=== PATIENT | male | born 1935 | race Caucasian/White ===

== ENCOUNTER 2017-06-10 14:44 | Emergency (ER) | payer MEDICARE ==
[~2017-06-10] VITALS: Ht 185.4 cm; Wt 81.6 kg
--- OUTSIDE RECORDS SUMMARY | 2017-06-10 14:46 | XMS REPORT | Clinical Summary ---
Author Author [facility] Organization [facility] Address Unknown Phone Unavailable Care Team Providers Care Instructor Knitting Name Role Phone Gideon Lindsay MD PCP Allergies Active Allergy Reactions Severity Noted Date Comments Iodine Hives Low 11/10/2016 No Known Drug Allergies 06/08/2015 Current Medications Prescription Sig. Disp. Refills Start End Date Status Date fluticasone (FLONASE) 50 USE 2 SPRAYS IN EACH 16 mL 1 11/05/19 Active mcg/actuation nasal spray NOSTRIL EVERY DAY 17 omeprazole (PriLOSEC) 20 TAKE 1 CAPSULE DAILY 90 capsule 3 04/29/19 Active MG capsule 18 lisinopril-hydrochlorothi TAKE 1 TABLET DAILY 90 tablet 3 05/06/19 Active azide 18 (PRINZIDE,ZESTORETIC) 20-12.5 mg per tablet lisinopril-hydrochlorothi TAKE 1 TABLET DAILY 90 tablet 3 03/26/20 05/05/19 Discontin azide 16 18 ued (PRINZIDE,ZESTORETIC) 20-12.5 mg per tablet omeprazole (PriLOSEC) 20 TAKE 1 CAPSULE DAILY 90 capsule 3 03/26/20 04/29/19 Discontin MG capsule 16 18 ued Active Problems Problem Noted Date Chest pain 06/08/2015 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 Depression 06/08/2015 Disease of prostate 06/08/2015 Shortness of breath 06/08/2015 Gluten intolerance 06/08/2015 Overview: Gluten sensitivity- Idiopathic peripheral neuropathy 06/08/2015 Malaise and fatigue 06/08/2015 Otalgia 06/08/2015 Poor short-term memory 06/08/2015 Inflammation of sacroiliac joint 11/23/2011 Constipation 11/24/2010 Atopic rhinitis 05/22/2010 Arthropathia 05/22/2010 Essential hypertension 05/22/2010 Gastroesophageal reflux disease 05/22/2010 Malignant neoplasm of prostate 05/22/2010 Encounters Date Type Specialty Care Team Description 05/05/2017 Refill Internal Medicine Dre Lindsay MD 04/29/2017 Refill Internal Medicine Dre Lindsay MD 11/10/2016 [facility]iology Vic Larson MD Diverticulitis large Encounter intestine w/o perforation or abscess w/bleeding; Chronic constipation 11/09/2016 [facility] Radiology Vic Larson MD Diverticulitis large Encounter intestine w/o perforation or abscess w/bleeding; Chronic constipation 11/09/2016 [facility] Access Vic Larson MD Diverticulitis large Orders intestine w/o perforation or abscess w/bleeding; Chronic constipation 11/05/2016 [facility] Vic Larson MD Chronic constipation Orders (Primary Dx); Diverticulitis large intestine w/o perforation or abscess w/bleeding 11/03/2016 Refill Internal Medicine Dre Lindsay MD after 06/09/2016 Immunizations Name Dates Previously Given Next Due FLUZONE HIGH-DOSE PF 02/26/2014 Influenza Trivalent 12/27/2007 Pneumococcal Conjugate 08/21/2014 13-Valent Td, Not Adsorbed 05/26/2010 Social History Tobacco Use Types Packs/Day Years Used Date Never Assessed Sex Assigned at Date Recorded Not on file Last Filed Vital Signs Not on file Plan of Treatment Health Maintenance Due Date Last Done Comments ZOSTER VACCINE 1994 PNEUMOCOCCAL 1999 POLYSACCHARIDE VACCINE AGE 65 AND OVER INFLUENZA VACCINE 11/17/2016 02/26/2014, 12/27/2007 PNEUMOCOCCAL-13 Completed 08/21/2014 Results * [place] Colon Gastrografin Water Soluble Enema (11/10/2016 12:12 PM) Specimen Performing Laboratory [facility] [address] [place] [address] Narrative EXAMINATION:FL COLON GASTROGRAFIN WATER SOLUBLE ENEMA CLINICAL HISTORY:K57.33 Diverticulitis of large intestine without perforation or abscess with bleeding, K59.09 Other constipation, SP COLECYSTECTOMY COMPARISON:None. TECHNIQUE:Barium and air were administered via a rectal tube by gravity under fluoroscopic guidance. The colon was opacified in a retrograde fashion to the cecum. Spot radiographs and overhead films were obtained. FLUOROSCOPIC TIME:2 minutes 45 seconds 9 spot films were obtained FINDINGS: The patient was premedicated with 25 mg of Benadryl and 50 mg of Solu- Cortef IV. The history of iodine allergy is noted. Gastrografin was utilized as per request given history of constipation. The colon was unprepped also as per request. This precludes evaluation of the colon intraluminally. Gastrografin was introduced in the colon retrograde fashion and was filled to the level of the cecum. There is no stricture identified. No annular constricting lesions are identified. The anastomosis does not appear abnormally narrowed IMPRESSION: 1. Stool-filled unprepped colon. No stricture is identified. 2. No annular constricting lesions are identified. 3. Intraluminal pathology is not excluded The patient tolerated the procedure well. . [id number] Procedure Note Hm Interface, Radiology Results Incoming - 11/10/2016 12:52 PM CDT EXAMINATION: FL COLON GASTROGRAFIN WATER SOLUBLE ENEMA CLINICAL HISTORY: K57.33 Diverticulitis of large intestine without perforation or abscess with bleeding, K59.09 Other constipation, SP COLECYSTECTOMY COMPARISON: None. TECHNIQUE: Barium and air were administered via a rectal tube by gravity under fluoroscopic guidance. The colon was opacified in a retrograde fashion to the cecum. Spot radiographs and overhead films were obtained. FLUOROSCOPIC TIME: 2 minutes 45 seconds 9 spot films were obtained FINDINGS: The patient was premedicated with 25 mg of Benadryl and 50 mg of Solu- Cortef IV. The history of iodine allergy is noted. Gastrografin was utilized as per request given history of constipation. The colon was unprepped also as per request. This precludes evaluation of the colon intraluminally. Gastrografin was introduced in the colon retrograde fashion and was filled to the level of the cecum. There is no stricture identified. No annular constricting lesions are identified. The anastomosis does not appear abnormally narrowed IMPRESSION: 1. Stool-filled unprepped colon. No stricture is identified. 2. No annular constricting lesions are identified. 3. Intraluminal pathology is not excluded The patient tolerated the procedure well. . [id number] after 06/09/2016 Insurance Payer Benefit Subscriber ID Type Phone Address Plan / Group AETNA MEDICARE AETNA xxxxxxxx HMO MEDICARE HMO/PPO [facility]
[2017-06-10] MEDS ORDERED: OMEPRAZOLE20 M1 (15:14)
[2017-06-10] MEDS ORDERED: LISINOPRIL10 MG PO (15:14)
[2017-06-10 23:50] VITALS: BP 148/88
== END 2017-06-10 19:11 | disposition home or self-care (01) ==
LOC: ER 14:44
DX: Z20.89 Contact with and (suspected) exposure to other communicable diseases (principal)
CPT/HCPCS: 99282

== ENCOUNTER 2017-12-13 14:26 | Emergency (ER) | payer MEDICARE ==
[~2017-12-13] VITALS: Ht 185.4 cm; Wt 83.9 kg
[~2017-12-13 14:26] MED LIST: LISINOPRIL10 MG PO; OMEPRAZOLE20 M1
== END 2017-12-13 14:59 | disposition left against medical advice (07) ==
LOC: FSED 14:26
DX: H11.31 Conjunctival hemorrhage, right eye (principal)

== ENCOUNTER 2019-01-13 03:04 | Emergency (ER) | payer MEDICARE ==
[~2019-01-13] VITALS: Ht 185.4 cm; Wt 83.9 kg
--- OUTSIDE RECORDS SUMMARY | 2019-01-13 03:07 | XMS REPORT | Clinical Summary ---
Author Author [employer] Organization [place] [employer] Address Unknown Phone Unavailable Care Team Providers Care Speech Therapist Technician Name Role Phone Dre Lindsay MD PCP Allergies Comments Active Allergy Reactions Severity Noted Date Iodine Hives Low 11/10/2016 No Known Drug Allergies 06/08/2015 Medications End Date Status Medication Sig Dispensed Refills Start Date Active methylcellulose (CITRUCEL Take by 0 ORAL) mouth. Active magnesium oxide 400 mg Take by 0 capsule mouth. Active cyanocobalamin, vitamin Place 5,000 0 B-12, 5,000 mcg tablet, mcg under the sublingual tongue daily. Active lisinopril-hydrochlorothi TAKE 1 TABLET 90 tablet 3 azide DAILY 9 (PRINZIDE,ZESTORETIC) 20-12.5 mg per tablet Active omeprazole (PriLOSEC) 20 TAKE 1 90 capsule 3 MG capsule CAPSULE DAILY 9 Active glucosamine Take by mouth 0 HCl/chondroitin kearns 2 (two) times (GLUCOSAMINE-CHONDROITIN a day. ORAL) 01/17/2018 Discontinued fluticasone (FLONASE) 50 USE 2 SPRAYS 16 mL 1 mcg/actuation nasal spray IN EACH 7 NOSTRIL EVERY DAY 05/26/2018 Discontinued (Reorder) omeprazole (PriLOSEC) 20 TAKE 1 90 capsule 3 MG capsule CAPSULE DAILY 8 05/26/2018 Discontinued (Reorder) lisinopril-hydrochlorothi TAKE 1 TABLET 90 tablet 3 azide DAILY 8 (PRINZIDE,ZESTORETIC) 20-12.5 mg per tablet 02/25/2018 Discontinued (Med List Cleanup) oxymetazoline (AFRIN) 2 sprays into 0 0.05 % nasal spray each nostril 2 (two) times a day. 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 Disease of prostate 06/08/2015 Gluten intolerance 06/08/2015 Overview: Gluten sensitivity- Idiopathic peripheral neuropathy 06/08/2015 Malaise and fatigue 06/08/2015 Poor short-term memory 06/08/2015 Inflammation of sacroiliac joint 11/23/2011 Constipation 11/24/2010 Allergic rhinitis 05/22/2010 Arthropathia 05/22/2010 Essential hypertension 05/22/2010 Gastroesophageal reflux disease 05/22/2010 Malignant neoplasm of prostate 05/22/2010 Resolved Problems Problem Noted Date Resolved Date Chest pain 06/08/2015 01/17/2018 Depression 06/08/2015 01/17/2018 Shortness of breath 06/08/2015 01/17/2018 Otalgia 06/08/2015 01/17/2018 Encounters Care Team Description Date Type Specialty Dre Lindsay MD Other constipation (Primary Dx); Essential hypertension; Idiopathic peripheral neuropathy; Rectal cancer (HCC); At risk for falling 10/31/2018 Office Visit Internal Medicine Dre Lindsay MD 05/26/2018 Refill Internal Medicine Pepito Cazares MD 02/25/2018 Anesthesia General Surgery Event Vic Larson MD TRANS-ANAL EXCISION 02/25/2018 Surgery General Surgery Vic Larson MD 02/25/2018 Hospital General Surgery Encounter Eriberto Jarrell MD Colmenter, Heather, MD 02/18/2018 Anesthesia Gastroenterology Event Vic Larson MD COLONOSCOPY 02/18/2018 Surgery Gastroenterology Vic Larson MD 02/18/2018 Hospital Gastroenterology Encounter Dre Lindsay MD Encounter for general adult medical examination with abnormal findings (Primary Dx); Slow transit constipation; Idiopathic peripheral neuropathy; Allergic rhinitis due to pollen, unspecified seasonality; Essential hypertension; Screening cholesterol level; Influenza vaccine needed 01/17/2018 Office Visit Internal Medicine after 01/12/2018 Immunizations Name Administration Dates Next Due FLUZONE HIGH-DOSE PF 01/17/2018, 02/26/2014 Influenza Trivalent 12/27/2007 Pneumococcal Conjugate 08/21/2014 13-Valent Td, Not Adsorbed 05/26/2010 Family History Medical History Relation Name Comments Arrhythmia Father Relation Name Status Comments Father Maternal Grandfather Maternal Grandmother Mother Paternal Grandfather Paternal Grandmother Sister Alive Social History Date Tobacco Use Types Packs/Day Years Used Never Smoker Smokeless Tobacco: Never Used Drinks/Week oz/Week Comments Alcohol Use No Sex Assigned at Date Recorded Not on file Industry Job Start Date Occupation Not on file Not on file Not on file Travel End Travel History Travel Start No recent travel history available. Last Filed Vital Signs Reading Time Taken Comments Vital Sign 106/65 10/31/2018 3:01 PM CDT Blood Pressure 62 10/31/2018 3:01 PM CDT Pulse 36.4 C (97.6 F) 02/25/2018 11:20 AM ASSOCIATE PROFESSOR OF PSYCHOLOGY Temperature 16 02/25/2018 12:46 PM ASSOCIATE PROFESSOR OF PSYCHOLOGY Respiratory Rate 97% 02/25/2018 12:46 PM ASSOCIATE PROFESSOR OF PSYCHOLOGY Oxygen Saturation - - Inhaled Oxygen Concentration 77.1 kg (170 lb) 10/31/2018 3:01 PM CDT Weight 182.9 cm (6') 10/31/2018 3:01 PM CDT Height 23.06 10/31/2018 3:01 PM CDT Body Mass Index Plan of Treatment Health Maintenance Due Date Last Done Comments SHINGLES VACCINES (#1) 1984 65+ PNEUMOCOCCAL VACCINE 08/22/2015 08/21/2014 (2 of 2 - PPSV23) INFLUENZA VACCINE 11/17/2018 01/17/2018, 02/26/2014, 12/27/2007 Procedures Comments Procedure Name Priority Date/Time Associated Diagnosis COMPREHENSIVE METABOLIC Routine 10/31/2018 Other constipation PANEL 3:54 PM CDT Essential hypertension CBC WITH PLATELET AND Routine 10/31/2018 Other constipation DIFFERENTIAL 3:54 PM CDT Essential hypertension SURGICAL PATHOLOGY Routine 02/25/2018 REQUEST 10:53 AM ASSOCIATE PROFESSOR OF PSYCHOLOGY SURGICAL PATHOLOGY Routine 02/25/2018 REQUEST 10:53 AM ASSOCIATE PROFESSOR OF PSYCHOLOGY EXCISION, TUMOR OR MASS, 02/25/2018 RECTAL CANCER RECTAL 10:22 AM ASSOCIATE PROFESSOR OF PSYCHOLOGY C20 URINALYSIS SCREEN AND STAT 02/25/2018 MICROSCOPY, WITH REFLEX 7:55 AM ASSOCIATE PROFESSOR OF PSYCHOLOGY TO CULTURE URINE CULTURE STAT 02/25/2018 7:55 AM ASSOCIATE PROFESSOR OF PSYCHOLOGY XR CHEST 1 VW PORTABLE STAT 02/25/2018 7:47 AM ASSOCIATE PROFESSOR OF PSYCHOLOGY ESTIMATED GFR STAT 02/25/2018 7:31 AM ASSOCIATE PROFESSOR OF PSYCHOLOGY THYROID STIMULATING STAT 02/25/2018 HORMONE 7:31 AM ASSOCIATE PROFESSOR OF PSYCHOLOGY PROSTATE SPECIFIC ANTIGEN STAT 02/25/2018 7:31 AM ASSOCIATE PROFESSOR OF PSYCHOLOGY CARCINOEMBRYONIC ANTIGEN STAT 02/25/2018 (CEA) 7:31 AM ASSOCIATE PROFESSOR OF PSYCHOLOGY COMPREHENSIVE METABOLIC STAT 02/25/2018 PANEL 7:31 AM ASSOCIATE PROFESSOR OF PSYCHOLOGY HC COMPLETE BLD COUNT Routine 02/25/2018 W/AUTO DIFF 7:31 AM ASSOCIATE PROFESSOR OF PSYCHOLOGY SURGICAL PATHOLOGY Routine 02/18/2018 REQUEST 1:49 PM CDT SURGICAL PATHOLOGY Routine 02/18/2018 REQUEST 1:49 PM CDT COLONOSCOPY 02/18/2018 CONSTIPATION 12:20 PM CDT ECG 12-LEAD Routine 02/18/2018 12:00 PM CDT LDL CHOLESTEROL, DIRECT Routine 01/17/2018 Screening cholesterol 2:26 PM CDT level HDL CHOLESTEROL Routine 01/17/2018 Screening cholesterol 2:26 PM CDT level CHOLESTEROL Routine 01/17/2018 Screening cholesterol 2:26 PM CDT level URINALYSIS, COMPLETE, Routine 01/17/2018 Slow transit constipation WITH REFLEX TO CULTURE 2:26 PM CDT Essential hypertension COMPREHENSIVE METABOLIC Routine 01/17/2018 Slow transit constipation PANEL 2:26 PM CDT CBC WITH PLATELET AND Routine 01/17/2018 Slow transit constipation DIFFERENTIAL 2:26 PM CDT after 01/12/2018 Results * CBC with platelet and differential (10/31/2018 3:54 PM CDT) Only the most recent of 3 results within the time period is included. [facility] WBC 7.3 3.8 - 10.8 [facility] Thousand/uL [facility] RBC 4.08 (L) 4.20 - 5.80 [facility] Million/uL [facility] [place] HGB 13.3 13.2 - 17.1 g/dL [facility] [place] HCT 38.5 38.5 - 50.0 % [facility] [place] MCV 94.4 80.0 - 100.0 fL [facility] [place] MCH 32.6 27.0 - 33.0 pg [facility] [place] MCHC 34.5 32.0 - 36.0 g/dL [facility] [place] RDW 12.4 11.0 - 15.0 % [facility] [place] Platelet count 192 140 - 400 [facility] Thousand/uL [facility] MPV 9.9 7.5 - 12.5 fL [facility] [place] Neutrophils, 5,139 1,500 - 7,800 [facility] absolute cells/uL [facility] [place] Lymphocytes, 1,460 850 - 3,900 cells/uL [facility] absolute [facility] [place] Monocytes, 577 200 - 950 cells/uL [facility] absolute [facility] [place] Eosinophils, 80 15 - 500 cells/uL [facility] absolute [facility] [place] Basophils, 44 0 - 200 cells/uL [facility] absolute [facility] [place] Neutrophils 70.4 % [facility] [place] Lymphocytes 20.0 % [facility] [place] Monocytes 7.9 % [facility] [place] Eosinophils 1.1 % [facility] [place] Basophils + RC 0.6 % [facility] [place] Specimen Blood Narrative Performed At FASTING:NO [facility] FASTING: NO Resulting Agency Comment Performing Organization Information: Site ID: [id number] Address: [address] [place] [phone] Director: Benita Hill Performing Organization Address City/State/Zipcode Phone Number [facility] [place] [phone] * Comprehensive metabolic panel (10/31/2018 3:54 PM CDT) Only the most recent of 3 results within the time period is included. [facility] Glucose 97 65 - 139 mg/dL [facility] Comment: [facility] Non-fasting [place] reference interval BUN, whole 12 7 - 25 mg/dL [facility] blood [facility] [place] Creatinine 0.81 0.70 - 1.11 mg/dL [facility] Comment: [facility] For patients >49 years of age, [place] the reference limit for Creatinine is approximately 13% higher for people identified as -Belgian. EGFR Non-Afr. 82 > OR=60 [facility] [place] mL/min/1.73m2 [facility] [place] EGFR 95 > OR=60 [facility] [place] mL/min/1.73m2 [facility] [place] BUN/creatinine NOT APPLICABLE 6 - 22 (calc) [facility] ratio [facility] [place] Sodium 131 (L) 135 - 146 mmol/L [facility] [place] Potassium 4.4 3.5 - 5.3 mmol/L [facility] [place] Chloride 96 (L) 98 - 110 mmol/L [facility] [place] CO2 30 20 - 32 mmol/L [facility] [place] Calcium 9.0 8.6 - 10.3 mg/dL [facility] [place] Protein 6.7 6.1 - 8.1 g/dL [facility] [place] Albumin, S 4.1 3.6 - 5.1 g/dL [facility] [place] Globulin, total 2.6 1.9 - 3.7 g/dL [facility] (calc) [facility] Albumin/globuli 1.6 1.0 - 2.5 (calc) [facility] n ratio [facility] Total bilirubin 0.5 0.2 - 1.2 mg/dL [facility] [place] Alkaline 63 40 - 115 U/L [facility] phosphatase [facility] AST 14 10 - 35 U/L [facility] [place] ALT 10 9 - 46 U/L [facility] [place] Specimen Blood Narrative Performed At FASTING:NO [facility] FASTING: NO Resulting Agency Comment Performing Organization Information: Site ID: [id number] Address: [address] [place] [phone] Director: Benita Hill Performing Organization Address City/[facility]/Zipcode Phone Number [facility] [place] [phone] * Surgical pathology request (02/25/2018 10:53 AM ASSOCIATE PROFESSOR OF PSYCHOLOGY) Only the most recent of 4 results within the time period is included. [facility] DEPARTMENT OF PATHOLOGY AND GENOMIC MEDICINE Surgical See link below for PDF Lab [facility] pathology Report DEPARTMENT OF report PATHOLOGY AND GENOMIC MEDICINE Result status This is Supplemental Report [facility] for [id number] DEPARTMENT OF PATHOLOGY AND GENOMIC MEDICINE Specimen Performing Organization Address City/State/Zipcode Phone Number [facility] DEPARTMENT [place] [address] [address] [place] [phone] PATHOLOGY AND GENOMIC MEDICINE * Urinalysis screen and microscopy, with reflex to culture (02/25/2018 7:55 AM ASSOCIATE PROFESSOR OF PSYCHOLOGY) Specimen site Clean catch [facility] DEPARTMENT OF PATHOLOGY AND GENOMIC MEDICINE Color, UA Yellow [facility] DEPARTMENT OF PATHOLOGY AND GENOMIC MEDICINE Appearance, UA Clear [facility] DEPARTMENT OF PATHOLOGY AND GENOMIC MEDICINE Specific 1.012 1.001 - 1.035 [facility] gravity, DEPARTMENT OF PATHOLOGY AND GENOMIC MEDICINE pH, UA 6.0 5.0 - 8.5 [facility] DEPARTMENT OF PATHOLOGY AND GENOMIC MEDICINE Protein, UA Negative Negative [facility] DEPARTMENT OF PATHOLOGY AND GENOMIC MEDICINE Glucose, UA Negative Negative [facility] DEPARTMENT OF PATHOLOGY AND GENOMIC MEDICINE Ketones, UA Negative Negative [facility] DEPARTMENT OF PATHOLOGY AND GENOMIC MEDICINE Bilirubin, UA Negative Negative [facility] DEPARTMENT OF PATHOLOGY AND GENOMIC MEDICINE Blood, UA Negative Negative [facility] DEPARTMENT OF PATHOLOGY AND GENOMIC MEDICINE Nitrite, UA Negative Negative [facility] DEPARTMENT OF PATHOLOGY AND GENOMIC MEDICINE Urobilinogen, Negative <2.0 [facility] DEPARTMENT OF PATHOLOGY AND GENOMIC MEDICINE Leukocyte Negative Negative [facility] esterase, DEPARTMENT OF PATHOLOGY AND GENOMIC MEDICINE WBC, UA 0-5 0 - 1 /HPF [facility] DEPARTMENT OF PATHOLOGY AND GENOMIC MEDICINE RBC, UA 0-5 0 - 5 /HPF [facility] DEPARTMENT OF PATHOLOGY AND GENOMIC MEDICINE Bacteria, UA None seen None seen [facility] DEPARTMENT OF PATHOLOGY AND GENOMIC MEDICINE Yeast, UA None seen [facility] DEPARTMENT OF PATHOLOGY AND GENOMIC MEDICINE Yeast with None seen [facility] pseudohyphae, DEPARTMENT OF PATHOLOGY AND GENOMIC MEDICINE Hyaline casts, 3-5 /LPF [facility] DEPARTMENT OF PATHOLOGY AND GENOMIC MEDICINE Specimen Urine Performing Organization Address [facility] Phone Number [address] [place] [address] PATHOLOGY AND GENOMIC MEDICINE * Urine culture (02/25/2018 7:55 AM ASSOCIATE PROFESSOR OF PSYCHOLOGY) Urine culture SEE COMMENTComment: [facility] Bacteriuria screen negative. DEPARTMENT OF PATHOLOGY AND GENOMIC MEDICINE Specimen Urine Performing Organization Address [facility] Phone Number [address] [place] [phone] PATHOLOGY AND GENOMIC MEDICINE * XR Chest 1 Vw Portable (02/25/2018 7:47 AM ASSOCIATE PROFESSOR OF PSYCHOLOGY) Specimen Narrative Performed At EXAMINATION:XR CHEST 1 VW PORTABLE [facility] CLINICAL HISTORY:pre-opOPS rm [id number] COMPARISON: FINDINGS: The heart size is within normal limits. The aorta is dilated and tortuous. The mediastinum is otherwise unremarkable. The lungs are free of acute abnormalities. A few scattered calcified granulomata are noted. IMPRESSION: No acute finding is visualized [id number] Procedure Note Hm Interface, Radiology Results Incoming - 02/25/2018 7:56 AM ASSOCIATE PROFESSOR OF PSYCHOLOGY EXAMINATION: XR CHEST 1 VW PORTABLE CLINICAL HISTORY: pre-op OPS rm [id number] COMPARISON: FINDINGS: The heart size is within normal limits. The aorta is dilated and tortuous. The mediastinum is otherwise unremarkable. The lungs are free of acute abnormalities. A few scattered calcified granulomata are noted. IMPRESSION: No acute finding is visualized [id number] Performing Organization Address City/[facility]/Zipcode Phone Number [facility] [address] [place] [address] * Estimated GFR (02/25/2018 7:31 AM ASSOCIATE PROFESSOR OF PSYCHOLOGY) Estimated GFR 82 mL/min/1.73 m2 [facility] Comment: DEPARTMENT OF [employer]ory[employer]itsInte PATHOLOGY AND rpretation [place] [id number] MEDICINE >=90 Normal or high G2 60-89Mildly decreased [id number] Mildly to moderately decreased [id number] Moderately to severely decreased G4 15-29Severely decreased G5 <15Kidney failure The eGFR was calculated using the Chronic Kidney Disease Epidemiology Collaboration (CKD-EPI) equation. Interpretation is based on recommendations of the National Kidney Foundation-Kidney Disease Outcomes Quality Initiative (NKF-KDOQI) published in 2014. Specimen Plasma specimen Performing Organization Address [facility] Vegascomd Phone Number [address] [place] [phone] PATHOLOGY AND GENOMIC MEDICINE * Thyroid stimulating hormone (02/25/2018 7:31 AM ASSOCIATE PROFESSOR OF PSYCHOLOGY) TSH 2.02 0.27 - 4.20 uIU/mL [facility] DEPARTMENT OF PATHOLOGY AND GENOMIC MEDICINE Specimen Plasma specimen Performing Organization Address [facility] Phone Number [address] [place] [phone] PATHOLOGY AND GENOMIC MEDICINE * Prostate specific antigen (02/25/2018 7:31 AM ASSOCIATE PROFESSOR OF PSYCHOLOGY) PSA 0.2 0.0 - 4.0 ng/mL [facility] DEPARTMENT Comment: OF PATHOLOGY The KENYON 8000 PSA immunoassay AND [employer] was used. MEDICINE Results obtained with different assay methods or kits should not be used interchangeably and may be different. Specimen Plasma specimen Performing Organization Address [facility] Vegas[facility] Phone Number [facility] DEPARTMENT OF [address] [place] [phone] PATHOLOGY AND GENOMIC MEDICINE * Carcinoembryonic antigen (CEA) (02/25/2018 7:31 AM ASSOCIATE PROFESSOR OF PSYCHOLOGY) [facility] CEA 2.5 0.0 - 3.8 ng/mL [facility] DEPARTMENT Comment: OF PATHOLOGY Reference range for heavy AND GENOMIC smokers:0.0 - 5.5 ng/mL MEDICINE The TETO [place] 8000 CEA immunoassay was used. Results obtained with different assay methods or kits should not be used interchangeably and may be different. Specimen Serum Performing Organization Address [facility] Vegas[facility]d Phone Number [facility] DEPARTMENT OF [address] [place] [phone] PATHOLOGY AND [facility] MEDICINE * ECG 12 lead (02/18/2018 12:00 PM CDT) [facility] Ventricular 72 [facility] MUSE rate Atrial rate 72 [facility] M[facility] IN interval 176 [facility] QRSD interval 106 [facility] QT interval 394 [facility] QTC interval 431 [facility] P axis 1 51 [facility] M[facility] QRS axis 1 -75 [facility] MUSE T wave axis 41 [facility] EKG impression Sinus rhythm with sinus [facility] MUSE arrhythmia with occasional premature ventricular complexes-Left axis deviation-Low voltage QRS-Incomplete right bundle branch block-Possible Lateral infarct (cited on or before 06-NOV-2015)-Abnormal ECG-In automated comparison with ECG of 23-NOV-2015 17:12,-Significant changes have occurred- Specimen Performing Organization Address City/[facility] Vegas[facility] Phone Number [facility] MUSE [address] [place] [phone] * URINALYSIS, COMPLETE, WITH REFLEX TO CULTURE (01/17/2018 2:26 PM CDT) Pathologist [facility] Color, UA YELLOW YELLOW [facility] [place] Appearance CLEAR CLEAR [facility] [place] Specific 1.015 1.001 - 1.035 [facility] gravity, urine [facility] [place] pH, urine 5.5 5.0 - 8.0 [facility] [place] Glucose, urine NEGATIVE NEGATIVE [facility] [place] Bilirubin, UA NEGATIVE NEGATIVE [facility] [place] Ketones, UA NEGATIVE NEGATIVE [facility] [place] Occult blood, NEGATIVE NEGATIVE [facility] urine [facility] [place] Protein, UA NEGATIVE NEGATIVE [facility] [place] Nitrite, UA NEGATIVE NEGATIVE [facility] [place] Leukocyte NEGATIVE NEGATIVE [facility] esterase, UA [facility] [place] WBC, UA NONE SEEN < OR=5 /HPF [facility] [place] RBC, UA NONE SEEN < OR=2 /HPF [facility] [place] Squamous NONE SEEN < OR=5 /HPF [facility] epithelial DIAGNOSTICS cells, UA [place] Bacteria, UA NONE SEEN NONE SEEN /HPF [facility] [place] Hyaline casts, NONE SEEN NONE SEEN /LPF [facility] UA [facility] [place] Reflex NO CULTURE INDICATED [employer] [place] Specimen Narrative Performed At FASTING:NO [facility] FASTING: NO Resulting Agency Comment Performing Organization Information: Site ID: [facility] Name: [facility] Lab Address: [address] [place] [phone] Director: Benita Hill Performing Organization Address [facility] Phone Number [employer] [address] [address] * LDL cholesterol, direct (01/17/2018 2:26 PM CDT) Pathologist [facility] LDL Direct 76 <100 mg/dL [facility] Comment: DIAGNOSTICS Greatly elevated Triglycerides [place] values (>1200 mg/dL) interfere with the dLDL assay. As no Triglycerides testing was ordered, interpret results with caution. Desirable range <100 mg/dL for primary prevention; <70 mg/dL for patients with CHD or diabetic patients with > or=2 CHD risk factors. Specimen Blood Narrative Performed At FASTING:NO [facility] FASTING: NO Resulting Agency Comment Performing Organization Information: Site ID: [facility]: [facility] Address: [address] [place] [phone] Director: Benita Hill Performing Organization Address [facility] Vegas[facility] Phone Number [employer] [address] [address] * HDL cholesterol (01/17/2018 2:26 PM CDT) Pathologist [facility] HDL cholesterol 40 (L) >40 mg/dL [employer] [place] Specimen Blood Narrative Performed At FASTING:NO [facility] FASTING: NO Resulting Agency Comment Performing Organization Information: Site ID: [facility] Name: [facility] Address: [address] [place] [phone] Director: Benita Hill Performing Organization Address City/[facility] Phone Number [employer] [place] [address] [place], [place] [phone] * Cholesterol (01/17/2018 2:26 PM CDT) Cholesterol, 122 <200 mg/dL [facility] total [facility] [place] Specimen Blood Narrative Performed At FASTING:NO [facility] FASTING: NO Resulting Agency Comment Performing Organization Information: Site ID: [facility]: [facility] Address: [address] [place] [phone] Director: Benita Hill Performing Organization Address City/State/Zipcode Phone Number [employer] [place] [address] [place], [place] [phone] after 01/12/2018 Insurance Type Payer Benefit Subscriber ID Effective Phone Address Plan / Dates Group HMO AETNA MEDICARE AETNA xxxxxxxx [id number] MEDICARE resent HMO/PPO [facility] Advance Directives For more information, please contact: [phone] Patient Continuous Improvement Coordinator Explanation Type Date Recorded Advance Directives, 02/18/2018 11:33 AM Living Will and Medical Power of Store Facility Technician
--- NOTE | 2019-01-13 04:24 | Diagnostic Imaging Report ---
Lumbar Spine Radiographs: 6 views HISTORY: Pain COMPARISON: None available. DISCUSSION: Some of the osseous structures are partially obscured by stool and bowel gas. There are five non-rib bearing lumbar vertebral bodies. Normal alignment of lumbar spine vertebral bodies. Mildly exaggerated lumbar spine lordosis. No displaced fracture or compression deformity is identified. Mild L4-L5 and L5-S1 degenerative changes. IMPRESSION: No acute radiographic abnormality. Signed by: Dr. Ashwin Lorenzo MD on 01/13/2019 4:20 AM
== END 2019-01-13 04:50 | disposition home or self-care (01) ==
LOC: FSED 03:04
DX: R53.1 Weakness (principal); G62.89 Other specified polyneuropathies
CPT/HCPCS: 72110; 80053; 82553; 84484; 85025; 93005; 99283

== ENCOUNTER → 2019-01-18 | Outpatient (CLI) | payer MEDICARE ==
--- NOTE | 2019-01-18 14:44 | Diagnostic Imaging Report ---
EXAMINATION: CHEST 2 VIEWS INDICATION: TB screening COMPARISON: None FINDINGS: LINES/TUBES:None LUNGS:The lungs are mildly hyperinflated. No focal consolidation or pulmonary edema. PLEURA:No pleural effusion or pneumothorax. MEDIASTINUM:The cardiomediastinal silhouette appears normal in size and shape. Atherosclerotic calcifications of the thoracic aorta. BONES/SOFT TISSUES:No acute osseous injury. ABDOMEN:No free air under the diaphragm. IMPRESSION: No acute cardiopulmonary findings. Signed by: Breana Pearce MD on 01/18/2019 2:40 PM
== END ==
LOC: RAD 13:46
PROVIDERS: ATTEND Internal Medicine
DX: Z11.1 Encounter for screening for respiratory tuberculosis (principal)
CPT/HCPCS: 71046

== ENCOUNTER → 2021-08-12 | Outpatient (CLI) | payer MEDICARE | LOC: RAD 14:31 | PROVIDERS: ATTEND Internal Medicine | DX: R05.9 Cough, unspecified (principal) | CPT/HCPCS: 71046 ==